=== PATIENT | female | born 1960 | race Caucasian/White ===

== ENCOUNTER 2020-04-03 16:42 | Emergency (ER) | payer OTHER, SELFPAY ==
[2020-04-03 16:45] VITALS: BP 164/110; PULSE 64; PULSE 67; RESP 17; RESP 18; TEMP 36.6; O2SAT 96; O2SAT 98; BMI 25.2
--- NOTE | 2020-04-03 16:55 | CT_ITS ---
STUDY: CT ABDOMEN AND PELVIS WITHOUT CONTRAST REASON FOR EXAM: Female, 59 years old. N/V, LOWER ABD PAIN. H/O DIVERTICULITIS RADIATION DOSAGE (If Supplied By Facility): CTDIvol = ( 14.66 ) mGy, DLP = ( 555.35 ) mGycm TECHNIQUE: Transaxial images were obtained from the dome of the diaphragm to the symphysis pubis without oral contrast, and without intravenous contrast. Sagittal and coronal images were reconstructed. Individualized dose optimization techniques were used for this CT. COMPARISON: None. FINDINGS: The visualized lung bases are unremarkable. The visualized portions of the heart are within normal limits. Normal liver. Normal gallbladder and extrahepatic biliary system. Normal spleen. Normal pancreas. Normal bilateral adrenal glands. Normal right kidney. 3 cm lower pole cyst, otherwise unremarkable left kidney. Normal visualized stomach. Normal small intestine. There is diverticulosis, with thickening of the sigmoid colon wall, and pericolonic inflammation changes consistent with acute diverticulitis. The appendix is visualized and appears normal. Normal abdominal aorta. Normal inferior vena cava. Normal retroperitoneum. Normal urinary bladder. There is absence of the uterus consistent with a prior hysterectomy. There is a small umbilical hernia containing fat. Normal osseous structures. CT/Abdomen/Pelvis W IV Cont ONLY IMPRESSION: Sigmoid diverticulitis without focal abscess or free air identified. Electronically Signed: Abhi Malik, at 19:55 EDT Tel , Service support ,
--- NOTE | 2020-04-03 16:56 | ED.DCSUM_ITS ---
History of Present Illness Chief Complaint: Abd Pain Informant: Patient Onset: Today Narrative: Lower abdominal pain awakening her overnight, pain persistent, nausea vomiting since total of 6-7 episodes, no hematemesis. Normal bowel movement this morning. Positive flatus. History of hysterectomy and laparoscopic surgery due to endometriosis. No history of bowel obstructions. History of diverticulitis earlier last year, had a colonoscopy shortly prior to her episode in [place]. No urinary symptoms. Allergy to sulfa and erythromycin. 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 Denies: Diarrhea, Melena, Hematochezia Genitourinary: Denies: Dysuria, Hematuria, Frequency Musculoskeletal: Denies: Back pain, Extremity Pain Skin: Denies: Rash, Wounds Neurological: Denies: Headache, Weakness, Numbness Physical Exam Vital Signs/Narrative: Vital Signs Temp Pulse Resp BP Pulse Ox 04/03/20 16:45 97.8 F 64 17 164/110 H 98 Inital Vital Signs reviewed: Yes General: Well nourished, Well developed, No Acute Distress Head: Normocephalic, Atraumatic Eyes: Perrl, EOMI ENT: - - Patient wearing mask due to Covid pandemic Neck: Supple, Nontender Cardiovascular: Regular rate, Regular rhythm, No murmurs Respiratory: No distress, CTA bilaterally, Chest nontender Abdomen: Soft, Nondistended, Normal bowel sounds, Tender, - - Tender palpation suprapubic left lower quadrant, no guarding or rebound Back: Nontender, Normal Inspection Extremities: Nontender, No edema Skin: Normal color, No rash Neurological: Alert, Oriented x3, Cranial nerves II-XII grossly intact, Normal Strength, Normal Sensation Psychological: Normal affect, Normal Mood Diagnostic/Tx/Re-eval Abnormal Lab Results 04/03/20 04/03/20 04/03/20 17:25 17:25 17:25 WBC 13.1 H RBC 4.35 Hgb 13.8 Hct 39.9 MCV 91.7 MCH 31.7 MCHC 34.6 RDW Std Deviation 40.8 RDW Coeff of Lily 12.1 Plt Count 301 MPV 10.1 Immature Gran % (Auto) 0.400 Neut % (Auto) 90.6 H Lymph % (Auto) 5.7 L [place] % (Auto) 3.2 Eos % (Auto) 0.0 Baso % (Auto) 0.1 Absolute Neuts (auto) 11.8 H Absolute Lymphs (auto) 0.74 L Nucleated RBC % 0 Sodium 136 Potassium 3.6 Chloride 103 Carbon Dioxide 25.0 Anion Gap 8 BUN 12 Creatinine 0.73 Estim Creat Clear Calc 66.95 Est GFR (MDRD) Af Amer 103 Est GFR (MDRD) Non-Af 85 BUN/Creatinine Ratio 16.3 Glucose 160 H Calcium 9.5 Total Bilirubin 0.90 AST 20 ALT 19 Alkaline Phosphatase 110 Total Protein 8.6 H Albumin 4.1 Globulin 4.5 H Albumin/Globulin Ratio 0.9 Lipase 116 Clinical Impression(s) from Imaging Studies Abdomen/Pelvis CT 04/03/20 16:55 IMPRESSION: Sigmoid diverticulitis without focal abscess or free air identified. Electronically Signed: Abhi Malik, at 19:55 EDT Tel , Service support , - Medical Decision Making Patient nontoxic, nonsurgical abdomen. Work-up initiated white count of 13, CT scan sigmoid diverticulitis without any complications. Treated morphine Zofran fluids reevaluation symptoms were improving. Abdomen was improving. Discussed treatment options she states she is been on Augmentin in the past. This was started. Prescription Augmentin Zofran and Percocet to use as needed. Strict signs of discussed return. All questions were answered. ED Disposition - Plan for ED Patient: Disposition: Home or Assisted Living Diagnosis: Diverticulitis of sigmoid colon Instructions: ED Diverticulitis Prescriptions: Amox/Clavulanate Tablet [Augmentin Tablet] 875 mg PO Q12H #20 tab Transmission Status: Pending to [id number] Oxycodone HCl/Acetaminophen [Percocet 5/325] 1 tablet PO Q6H PRN PRN 3 Days #12 tablet PRN Reason: Pain Transmission Status: Sent to [id number] Ondansetron [Zofran Odt] 4 mg PO Q8H PRN PRN #12 tab PRN Reason: nausea or vomiting Transmission Status: Pending to [id number] Referrals: [facility] Doctor,Out of [NON-STAFF] - Additional Instructions: Follow up with your GI doctor in the next week. Return if any worsening symptoms.
[2020-04-03] MEDS: Ondansetron 4 MG/2 ML Vial IV ×2 (17:38→21:03)
[2020-04-03] MEDS: Morphine 4 MG/ML Syringe IV (17:38)
[2020-04-03] MEDS: 0.9% Normal Saline 1,000 ML 1000 ML IV (17:38)
[2020-04-03 17:40] LABS: Absolute Lymphocyte Count 0.74 X10^3/uL (0.83-4.51); Absolute Neutrophil Count 11.8 X10^3/uL (2.0-7.7); Basophil# 0.01 X10^3/uL; Basophil% 0.1 % (0-1); Hematocrit 39.9 % (37-47); Hemoglobin 13.8 g/dL (12.0-15.0); Lymphocyte # 0.74 X10^3/ul (4.0); Lymphocyte % 5.7 % (19-41); Mean Corp Hgb Conc 34.6 g/dL (32-36); Mean Corpuscular Hgb 31.7 pg (27.0-32.0); Mean Corpuscular Volume 91.7 fL (81-99); Mean Platelet Vol. 10.1 fl (6.2-12.0); Monocyte# 0.42 X10^3/uL; Monocyte% 3.2 % (0-10); NRBC Flagged by Analyzer 0 % (0-5); Neutrophil # 11.83 X10^3/uL (2.7-7.7); Neutrophil % 90.6 % (47-70); Platelet Count 301 K/mm3 (150-450); RBC Distribution Width CV 12.1 % (11.6-14.6); RBC Distribution Width SD 40.8 fl (35.1-43.9); Red Blood Count 4.35 M/mm3 (4.2-5.4); White Blood Count 13.1 K/mm3 (4.4-11.0)
[2020-04-03 17:54] LABS: Lipase 116 U/L (73-393)
[2020-04-03 18:54] LABS: ALB/GLOB Ratio 0.9 RATIO (0.9-2.4); AST(SGOT) 20 U/L (15-37); Alanine Aminotransfer ALT/SGPT 19 U/L (13-56); Albumin, Serum 4.1 g/dL (3.2-5.0); Alkaline Phosphatase 110 U/L (45-117); Anion Gap 8 (5-15); BUN 12 mg/dL (7-18); BUN/Creat Ratio 16.3 RATIO (10-20); Calcium,Total 9.5 mg/dL (8.5-10.1); Chloride 103 mmol/L (98-107); Creatinine, Serum 0.73 mg/dL (0.55-1.02); EST Glomerular Filtration Rate 85 mL/min (>60); Est Glom Filt Rate - Afr Amer 103 mL/min (>60); Estimated Creatinine Clearance 66.95 ml/min; Globulin 4.5 g/dL (2.2-4.2); Glucose 160 mg/dL (74-106); Potassium 3.6 mmol/L (3.5-5.1); Protein, Total 8.6 g/dL (6.4-8.2); Sodium Level 136 mmol/L (136-145)
[2020-04-03 19:34] VITALS: BP 110/97
[2020-04-03] MEDS: Amox/Clavulanate 875 MG Tablet PO (21:03)
[2020-04-03 21:15] VITALS: BP 141/79; PULSE 64; RESP 15; O2SAT 99
== END 2020-04-03 21:16 | disposition home or self-care (01) ==
PROVIDERS: Emergency Medicine; Emergency Provider Emergency Medicine
DX: K57.32 Diverticulitis of large intestine without perforation or abscess without bleeding (principal); F41.9 Anxiety disorder, unspecified; F32.9 Major depressive disorder, single episode, unspecified; Z95.0 Presence of cardiac pacemaker; Z79.899 Other long term (current) drug therapy
CPT/HCPCS: 74177; 80053; 83690; 85025; 96361; 96374; 96375; 96376; 99284; J7030; Q9967; A4216; J2405

== ENCOUNTER 2020-05-08 14:55 | Emergency (ER) | payer OTHER, SELFPAY ==
[2020-05-08 14:56] VITALS: BP 204/76; PULSE 64; RESP 20; TEMP 36.4; O2SAT 100; BMI 24.7
--- NOTE | 2020-05-08 15:03 | CT_ITS ---
STUDY: CT ABDOMEN AND PELVIS WITHOUT CONTRAST REASON FOR EXAM: Female, 59 years old. N/V/LLQ PAIN WITH GUARDING/HX OF RECENT DIVERTICULITIS. Pt had BE Wednesday RADIATION DOSAGE (If Supplied By Facility): CTDIvol = ( 12.62 ) mGy, DLP = ( 694.82 ) mGycm TECHNIQUE: Transaxial images were obtained from the dome of the diaphragm to the symphysis pubis without oral contrast, and without intravenous contrast. Sagittal and coronal images were reconstructed. Individualized dose optimization techniques were used for this CT. COMPARISON: Prior abdomen and pelvic CT exam of April 03, 2020 FINDINGS: The visualized lung bases are unremarkable. The visualized portions of the heart are within normal limits. Normal liver. Normal gallbladder and extrahepatic biliary system. Normal spleen. Normal pancreas. Normal bilateral adrenal glands. Stable subcentimeter cysts of the right kidney. Otherwise normal right kidney. Stable cysts of the left kidney. Otherwise normal left kidney. Normal visualized stomach. Nondistended small bowel. Substantial pockets of barium remaining in the colon which cause considerable artifact in the colon. Negative for evidence of perforation The appendix is visualized and appears normal. Mild calcified plaque of the aorta. Normal inferior vena cava. Normal retroperitoneum. Distended urinary bladder. Status post hysterectomy. Minimal fatty umbilical hernia. Levoscoliosis of the thoracolumbar spine CT/Abdomen/Pelvis W IV Cont ONLY IMPRESSION: Residual barium particularly in the distal colon largely obscures any subtle bowel related findings. Grossly negative for bowel perforation. The barium obscures the region of prior inflammation in the distal descending/proximal sigmoid colon. Proximal colon is not distended. Diverticulosis is present as previously noted. The appendix is normal. No additional acute abdominal findings or changes. Electronically Signed: Carlita Funk MD at 16:47 EDT , Service support ,
--- NOTE | 2020-05-08 15:05 | ED.DCSUM_ITS ---
History of Present Illness Chief Complaint: Abd Pain Detail of Chief Complaint: And vomiting and left lower quadrant abdominal pain Informant: Patient Onset: Yesterday Context: Sudden Onset Timing: Continuous Quality: Pain Location: Left lower quadrant Current Severity: Mild Maximum Severity: Severe Worsened by: Walking, coughing and movement Relieved by: Nothing Associated Symptoms: Nausea and vomiting every time she attempts to eat or drink anything Narrative: Patient is a 59-year-old woman with history of diverticulosis who presents with left lower quadrant abdominal pain associated with nausea and vomiting. She denies history of small bowel obstruction. She states she had a barium enema performed at [facility] on Wednesday. She does not know the results. The physician that ordered the barium enema was Dr. Mata. She denies fever, chills or night sweats. She denies upper respiratory symptoms. She denies ocular, visual or auditory symptoms. She denies chest pain. She does have history of constipation. She states she drinks a glass of MiraLAX a day. She denies dysuria, frequency, urgency or hematuria. She does report dry mouth and thirst. She states she feels terrible. There is no history of trauma. Prior similar symptoms: Yes Recent Illness/Hospitalization: No - Past Medical History (1) History of diverticulitis Status: Acute Past Medical History - Allergies and Home Meds Allergies/Adverse Reactions: Allergies Sulfa (Sulfonamide Antibiotics) Allergy (Verified 05/08/20 14:59) Rash erythromycin base Adverse Reaction (Verified 05/08/20 14:59) Nausea Primary Care Physician: Care Physician,No Primary [NON-STAFF] - Prior records reviewed: Yes Surgical History: noncontributory, hysterectomy, pacemaker implantation, - - ASD repair Lives: Spouse/ Significant Other Smoking Status: Former smoker Alcohol: Occasional Drugs: None Review of Systems General: Reports: Malaise. Denies: Chills, Fever, Subjective, Sweats Eyes: Denies: Visual changes - bilaterally, Blurred Vision - bilaterally ENT: Denies: Bilateral ear pain, Rhinorrhea, Sore throat Cardiovascular: Denies: Chest pain, Palpitations Respiratory: Denies: Dyspnea, Cough, Dyspnea on exertion Gastrointestinal: Reports: Abdominal pain, Nausea, Vomiting. Denies: Diarrhea, Constipation, Melena, Hematochezia, -, - Genitourinary: Denies: Dysuria, Hematuria, Frequency Musculoskeletal: Denies: Myalgias, Arthralgias, Neck pain, Back pain, Swelling, Extremity Pain, -, - Neurological: Denies: Headache, Weakness, Parasthesia, Numbness, -, - Endocrine: Denies: Polyuria, Polydipsia Hematologic: Denies: Easy bruising, Easy bleeding Physical Exam Vital Signs/Narrative: Vital Signs Temp Pulse Resp BP Pulse Ox 05/08/20 14:56 97.6 F L 64 20 H 204/76 H 100 Inital Vital Signs reviewed: Yes General: Well nourished, Well developed, Acute Distress Head: Normocephalic, Atraumatic Eyes: Perrl, EOMI. Negative for: Pale conjunctiva, Scleral icterus ENT: No rhinorrhea, TM's clear, Dry mucous membranes Neck: Supple, Nontender, No lymphadenopathy, No JVD Cardiovascular: Regular rate, Regular rhythm, No murmurs, Normal S1, Normal S2 Respiratory: No distress, CTA bilaterally, Chest nontender Abdomen: Soft, Nondistended, No masses, Tender, Guarding, Hypoactive bowel sounds. Negative for: Nontender, Normal bowel sounds, Rebound tenderness, Hyperactive bowel sounds, Hepatomegaly, Splenomegaly, Mass, Pulsatile mass, Ventral hernia, Umbilical hernia Rectal: Deferred Back: Nontender, Normal Inspection. Negative for: CVA tenderness Extremities: Nontender, No edema Skin: No rash, No Trauma, Pallor. Negative for: Normal color, Cyanosis, Diaphoresis, Jaundice Neurological: Alert, Oriented x3, Cranial nerves II-XII grossly intact, Normal Strength, Normal Sensation Psychological: Normal affect Diagnostic/Tx/Re-eval Impressions Abdomen/Pelvis CT 05/08/20 15:03 IMPRESSION: Residual barium particularly in the distal colon largely obscures any subtle bowel related findings. Grossly negative for bowel perforation. The barium obscures the region of prior inflammation in the distal descending/proximal sigmoid colon. Proximal colon is not distended. Diverticulosis is present as previously noted. The appendix is normal. No additional acute abdominal findings or changes. Electronically Signed: Carlita Funk MD at 16:47 EDT , Service support , 05/08/20 15:03 Abdomen/Pelvis W IV Cont ONLY [CT] Stat Laboratory Results 05/08/20 05/08/20 05/08/20 15:20 15:20 15:20 WBC 9.2 RBC 4.45 Hgb 13.9 Hct 41.6 MCV 93.5 MCH 31.2 MCHC 33.4 RDW Std Deviation 41.5 RDW Coeff of Lily 12.1 Plt Count 327 MPV 9.8 Immature Gran % (Auto) 0.800 Neut % (Auto) 73.1 H Lymph % (Auto) 21.0 [place] % (Auto) 4.6 Eos % (Auto) 0.3 Baso % (Auto) 0.2 Absolute Neuts (auto) 6.7 Absolute Lymphs (auto) 1.92 Nucleated RBC % 0 Sodium 137 Potassium 3.4 L Chloride 103 Carbon Dioxide 24.0 Anion Gap 10 BUN 6 L Creatinine 0.72 Estim Creat Clear Calc 67.88 Est GFR (MDRD) Af Amer 105 Est GFR (MDRD) Non-Af 87 BUN/Creatinine Ratio 8.3 L Glucose 132 H Lactic Acid 1.8 Calcium 9.5 Patient has been in the emerge department for greater than 3 hours. She passed p.o. challenge and has not vomited. She was informed 50% of patients who come to the emergency room the etiology of the pain is unknown. Since her work-up is unremarkable she was discharged home. She initially was surprised that I was discharging her. Since she has passed p.o. challenge and she will be discharged home - Medical Decision Making At onset of left lower quadrant pain and guarding concern patient has diverticulitis. Need to evaluate for perforation and abscess. Appropriate blood work was ordered. She received a liter of normal saline since clinically she is dehydrated. She was medicated with 4 mg of Zofran IV push and 4 mg of morphine sulfate IV push. ED Disposition - Plan for ED Patient: Disposition: Home or Assisted Living Diagnosis: Left sided abdominal pain of unknown cause, Diverticulosis, Nausea and vomiting, Mild dehydration Instructions: ED Abdominal Pain Unkn Cause Fem, ED Dehydration Adult Prescriptions: Dicyclomine HCl [Bentyl] 20 mg PO TIDAC #20 cap [id number] Ondansetron [Zofran Odt] 4 mg PO Q8H PRN PRN #10 tab PRN Reason: Nausea Transmission Status: Pending to [id number] Referrals: Care Physician,No Primary [NON-STAFF] - Doctor,Your [STAFF PHYSICIAN] - 3-5 Days if not improving
[2020-05-08] MEDS: 0.9% Normal Saline 1,000 ML 1000 ML IV (15:22)
[2020-05-08] MEDS: Morphine 4 MG/ML Syringe IV (15:23)
[2020-05-08] MEDS: Ondansetron 4 MG/2 ML Vial IV (15:23)
[2020-05-08 15:29] LABS: Absolute Lymphocyte Count 1.92 X10^3/uL (0.83-4.51); Absolute Neutrophil Count 6.7 X10^3/uL (2.0-7.7); Basophil# 0.02 X10^3/uL; Basophil% 0.2 % (0-1); Eosinophil# 0.03 X10^3/uL; Eosinophils% 0.3 % (0-5); Hematocrit 41.6 % (37-47); Hemoglobin 13.9 g/dL (12.0-15.0); Lymphocyte # 1.92 X10^3/ul (4.0); Mean Corp Hgb Conc 33.4 g/dL (32-36); Mean Corpuscular Hgb 31.2 pg (27.0-32.0); Mean Corpuscular Volume 93.5 fL (81-99); Mean Platelet Vol. 9.8 fl (6.2-12.0); Monocyte# 0.42 X10^3/uL; Monocyte% 4.6 % (0-10); NRBC Flagged by Analyzer 0 % (0-5); Neutrophil % 73.1 % (47-70); Platelet Count 327 K/mm3 (150-450); RBC Distribution Width CV 12.1 % (11.6-14.6); RBC Distribution Width SD 41.5 fl (35.1-43.9); Red Blood Count 4.45 M/mm3 (4.2-5.4); White Blood Count 9.2 K/mm3 (4.4-11.0)
[2020-05-08 16:15] LABS: Anion Gap 10 (5-15); BUN 6 mg/dL (7-18); BUN/Creat Ratio 8.3 RATIO (10-20); Calcium,Total 9.5 mg/dL (8.5-10.1); Chloride 103 mmol/L (98-107); Creatinine, Serum 0.72 mg/dL (0.55-1.02); EST Glomerular Filtration Rate 87 mL/min (>60); Est Glom Filt Rate - Afr Amer 105 mL/min (>60); Estimated Creatinine Clearance 67.88 ml/min; Glucose 132 mg/dL (74-106); Potassium 3.4 mmol/L (3.5-5.1); Sodium Level 137 mmol/L (136-145)
[2020-05-08 16:18] LABS: Lactic Acid 1.8 mmol/L (0.4-1.9)
[2020-05-08 17:00] VITALS: BP 168/79; PULSE 67; RESP 14; O2SAT 99
[2020-05-08] MEDS: Dicyclomine 10 MG Capsule 20 MG PO (17:12)
[2020-05-08 18:34] VITALS: BP 179/82; PULSE 61; RESP 12; O2SAT 97
== END 2020-05-08 18:54 | disposition home or self-care (01) ==
PROVIDERS: Emergency Provider Emergency Medicine
DX: R10.9 Unspecified abdominal pain (principal); R11.2 Nausea with vomiting, unspecified; E86.0 Dehydration; K57.90 Diverticulosis of intestine, part unspecified, without perforation or abscess without bleeding; K59.00 Constipation, unspecified; Z87.891 Personal history of nicotine dependence; Z88.1 Allergy status to other antibiotic agents; Z88.2 Allergy status to sulfonamides; Z90.710 Acquired absence of both cervix and uterus; Z95.0 Presence of cardiac pacemaker
CPT/HCPCS: 74177; 80048; 83605; 85025; 96361; 96374; 96375; 99283; J7030; Q9967; A4216; J2405